=== PATIENT | male | born 1980 | race Caucasian/White ===

== ENCOUNTER 2023-04-04 11:39 | Emergency (ER) | payer OTHER ==
[2023-04-04] MEDS ORDERED: HYDROCODONE-ACETAMIN 2.5-108/5 ML SOLUTION PO STA (12:04)
[2023-04-04] MEDS ORDERED: TORAdol 30 mg Injection IV ONE (12:05)
[2023-04-04] MEDS ORDERED: HYDROCODONE-ACETAMIN 2.5-108/5 ML SOLUTION ONE (12:16)
[2023-04-04] MEDS ORDERED: TORAdol 30 mg Injection ONE (12:16)
[2023-04-04 12:35] LABS: Absolute Neutrophil Ct (ANC) 4.96 x10^3/uL (1.4-6.9); BASOPHIL % 0.5 % (0.0-0.4); Basophil (Absolute #) 0.03 x10^3/uL (0-0.4); Eosinophil (Absolute #) 0 x10^3/uL (0-0.5); Hematocrit 43.1 % (42-50); Hemoglobin 14.6 g/dL (12.5-18.0); IMMATURE GRAN # 0.02 x10^3u/L (0.00-0.03); IMMATURE GRAN % 0.3 % (0.00-0.4); Lymphocytes % 9.2 % (24.0-44.0); Mean Corpuscular Hemoglobin 32.5 pg (26-32); Mean Corpuscular Hgb Concent. 33.9 g/dL (32-36); Monocyte (Absolute #) 0.89 x10^3/uL (0.0-1.3); Monocytes % 13.7 % (0.0-12.0); Neutrophil % 76.3 % (36.0-66.0); Platelet Count 222 x10^3/uL (150-450); Red Blood Count 4.49 x10^6/uL (4.1-5.6); White Blood Count 6.5 x10^3/uL (4.0-10.5)
[2023-04-04 12:49] LABS: ALBUMIN 4.4 g/dL (3.5-5.0); ANION GAP 15.7 MEQ/L (5-15); BILIRUBIN,TOTAL 0.5 mg/dL (0.2-1.3); Calcium 9.5 mg/dL (8.4-10.2); Creatinine 1 0.81 mg/dL (0.66-1.25); EST GLOMERULAR FILTRATION RATE 112.2 ML/MIN; Potassium 4.2 mmol/L (3.5-5.1); Total Protein 7.7 g/dL (6.3-8.2)
[2023-04-04 13:14] LABS: INFLUENZA A NEGATIVE (NEGATIVE); INFLUENZA B NEGATIVE (NEGATIVE); RESPIRATORY SYNCTIAL VIRUS NEGATIVE (NEGATIVE); SARS-CoV-2 Xpert Express NEGATIVE (NEGATIVE)
[2023-04-04 13:19] VITALS: TEMP 99.5
[2023-04-04 14:10] VITALS: BP 120/72; PULSE 81; RESP 15
[2023-04-04 14:14] VITALS: O2SAT 92
--- NOTE | 2023-04-04 14:14 | ERPHSYRPT ---
- History of Present Illness Time Seen by Provider: 04/04/23 11:48 Source: patient Exam Limitations: no limitations Patient Subjective Stated Complaint: C/O cough, fever, body aches for 2 days Triage Nursing Assessment: Patient ambulated back to ER. He is alert and oriented. Skin is hot to touch. He is flushed. Cough present that becomes more forceful when taking a deep breath to assess lung sounds. Cough is non- productive at this time. LISSETTE BANKS. Physician History: 42 years old male presented in the ER with chief complaint of cough congestion, body aches with a fever of Tmax 103. Patient reports having bouts of coughing and because of repeated coughing having generalized chest soreness. No difficulty breathing. He has been taking Tylenol and ibuprofen with some symptomatic relief. No abdominal pain nausea or vomiting. Allergies/Adverse Reactions: No Known Drug Allergies Allergy (Verified 04/04/23 11:45) Home Medications: Citalopram Hydrobromide [Celexa] 1 tab PO DAILY 04/04/23 [History] Insulin Aspart [NovoLOG Insulin] 1 unit SQ AC 04/04/23 [History] Insulin Glargine [Lantus Insulin] 25 unit SQ BID 04/04/23 [History] Lisinopril 10 mg [Zestril 10 MG] 0.5 mg PO DAILY 04/04/23 [History] Metformin HCl 500 mg [Glucophage 500 MG] 1,000 mg PO BID 04/04/23 [History] Rosuvastatin Calcium 1 tab PO DAILY 04/04/23 [History] buPROPion HCL [Bupropion HCl] 1 tab PO DAILY 04/04/23 [History] Hx Tetanus, Diphtheria Vaccination/Date Given: Yes Hx Influenza Vaccination/Date Given: No Hx Pneumococcal Vaccination/Date Given: No Immunizations Up to Date: Yes Travel Risk - International Travel Have you traveled outside of the country in past 3 weeks: No - Coronavirus Screening Are you exhibiting any of the following symptoms?: Yes Symptoms: Fever, Cough: New Onset, Headaches/Body Aches/Fatigue Close contact with a COVID-19 positive Pt in past 14-21 Days: No - Vaccine Status Have you recieved a Covid-19 vaccination: No - Review of Systems Constitutional: Fever, Chills, Fatigue, Weakness Eyes: No Symptoms Ears, Nose, & Throat: Nose Congestion, Throat Swelling Respiratory: Cough Cardiac: No Symptoms Abdominal/Gastrointestinal: No Symptoms Musculoskeletal: Myalgias Skin: No Symptoms Neurological: Headache Endocrine: No Symptoms Hematologic/Lymphatic: No Symptoms - Past Medical History Pertinent Past Medical History: Yes Neurological History: No Pertinent History ENT History: No Pertinent History Cardiac History: High Cholesterol, Hypertension Respiratory History: No Pertinent History Endocrine Medical History: Diabetes Type I Musculoskeletal History: Fractures GI Medical History: No Pertinent History History: No Pertinent History Psycho-Social History: Anxiety, Depression Male Reproductive Disorders: No Pertinent History - Past Surgical History Past Surgical History: Yes Other Surgical History: tendon to finger fixed - Social History Smoking Status: Current every day smoker How long have you smoked: 30 years Exposure to second hand smoke: No Drug Use: none Patient Lives Alone: No - Nursing Vital Signs Nursing Vital Signs: Initial Vital Signs Temperature 102.7 F 04/04/23 11:39 Blood Pressure 134/86 04/04/23 11:39 Pain Scale Pain Intensity 0 - Physical Exam General Appearance: no apparent distress, alert Eye Exam: PERRL/EOMI Ears, Nose, Throat Exam: moist mucous membranes, pharyngeal erythema Neck Exam: normal inspection, non-tender, supple, full range of motion Respiratory Exam: normal breath sounds, lungs clear Cardiovascular Exam: regular rate/rhythm, normal heart sounds Gastrointestinal/Abdomen Exam: soft, normal bowel sounds, No tenderness Extremity Exam: normal inspection Neurologic Exam: alert, oriented x 3, cooperative Skin Exam: normal color SpO2 Interpretation: normal SpO2: 92 O2 Delivery: Room Air Ordered Tests: Active Orders 24 hr Category Date Time Status CHEST 1 VIEW (PORTABLE) Stat Exams 04/04/23 12:04 Taken BLOOD CULTURE Stat Lab 04/04/23 12:44 Received CBC W DIFF Stat Lab 04/04/23 12:00 Completed CMP Stat Lab 04/04/23 12:00 Completed Lactic Acid Stat Lab 04/04/23 12:10 Completed Medication Summary Discontinued Medications Generic Name Dose Route Start Last Admin Trade Name Freq PRN Reason Stop Dose Admin Hydrocodone Bitart/Acetaminophen 15 ml 04/04/23 12:04 04/04/23 12:18 Hydrocodone/Acetaminophen 5 Ml Udcup PO 04/04/23 12:05 15 ml STAT STA Administration Hydrocodone Bitart/Acetaminophen Confirm 04/04/23 12:16 Hydrocodone/Acetaminophen 5 Ml Udcup Administered 04/04/23 12:17 Dose 15 ml .ROUTE .STK-MED ONE Ketorolac Tromethamine 30 mg 04/04/23 12:05 04/04/23 12:21 Ketorolac Tromethamine 30 Mg/Ml Inj IV 04/04/23 12:06 30 mg STAT ONE Administration Ketorolac Tromethamine Confirm 04/04/23 12:16 Ketorolac Tromethamine 30 Mg/Ml Inj Administered 04/04/23 12:17 Dose 30 mg .ROUTE .STK-MED ONE Lab/Rad Data: Laboratory Result Diagrams 04/04/23 12:00 04/04/23 12:00 Laboratory Results 04/04/23 04/04/23 04/04/23 Range/Units 12:10 12:00 12:00 WBC (4.0-10.5) x10^3/uL RBC (4.1-5.6) x10^6/uL Hgb (12.5-18.0) g/dL Hct (42-50) % MCV (78-100) fL MCH (26-32) pg MCHC (32-36) g/dL RDW (11.5-14.0) % Plt Count (150-450) x10^3/uL MPV (7.5-11.0) fL Gran % (36.0-66.0) % Immature Gran % (Auto) (0.00-0.4) % Nucleat RBC Rel Count (0.00-0.1) % Eos # (Auto) (0-0.5) x10^3/uL Immature Gran # (Auto) (0.00-0.03) x10^3u/L Absolute Lymphs (auto) (1.0-4.6) x10^3/uL Absolute Monos (auto) (0.0-1.3) x10^3/uL Absolute Nucleated RBC (0.00-0.01) x10^3u/L Lymphocytes % (24.0-44.0) % Monocytes % (0.0-12.0) % Eosinophils % (0.00-5.0) % Basophils % (0.0-0.4) % Absolute Granulocytes (1.4-6.9) x10^3/uL Basophils # (0-0.4) x10^3/uL Sodium 132 L (137-145) mmol/L Potassium 4.2 (3.5-5.1) mmol/L Chloride 97 L (98-107) mmol/L Carbon Dioxide 23 (22-30) mmol/L Anion Gap 15.7 H (5-15) MEQ/L BUN 13 (9-20) mg/dL Creatinine 0.81 (0.66-1.25) mg/dL Estimated GFR 112.2 ML/MIN Glucose 322 H (74-106) mg/dL Lactic Acid 1.2 (0.4-2.0) Calcium 9.5 (8.4-10.2) mg/dL Total Bilirubin 0.50 (0.2-1.3) mg/dL AST 24 (17-59) U/L ALT 32 (0-50) U/L Alkaline Phosphatase 66 (38-126) U/L Serum Total Protein 7.7 (6.3-8.2) g/dL Albumin 4.4 (3.5-5.0) g/dL Influenza Type A Ag NEGATIVE (NEGATIVE) Influenza Type B Ag NEGATIVE (NEGATIVE) RSV (PCR) NEGATIVE (NEGATIVE) SARS-CoV-2 (PCR) NEGATIVE (NEGATIVE) 04/04/23 Range/Units 12:00 WBC 6.5 (4.0-10.5) x10^3/uL RBC 4.49 (4.1-5.6) x10^6/uL Hgb 14.6 (12.5-18.0) g/dL Hct 43.1 (42-50) % MCV 96.0 (78-100) fL MCH 32.5 H (26-32) pg MCHC 33.9 (32-36) g/dL RDW 13.0 (11.5-14.0) % Plt Count 222 (150-450) x10^3/uL MPV 10.0 (7.5-11.0) fL Gran % 76.3 H (36.0-66.0) % Immature Gran % (Auto) 0.3 (0.00-0.4) % Nucleat RBC Rel Count 0.0 (0.00-0.1) % Eos # (Auto) 0 (0-0.5) x10^3/uL Immature Gran # (Auto) 0.02 (0.00-0.03) x10^3u/L Absolute Lymphs (auto) 0.60 L (1.0-4.6) x10^3/uL Absolute Monos (auto) 0.89 (0.0-1.3) x10^3/uL Absolute Nucleated RBC 0.00 (0.00-0.01) x10^3u/L Lymphocytes % 9.2 L (24.0-44.0) % Monocytes % 13.7 H (0.0-12.0) % Eosinophils % 0.0 (0.00-5.0) % Basophils % 0.5 (0.0-0.4) % Absolute Granulocytes 4.96 (1.4-6.9) x10^3/uL Basophils # 0.03 (0-0.4) x10^3/uL Sodium (137-145) mmol/L Potassium (3.5-5.1) mmol/L Chloride (98-107) mmol/L Carbon Dioxide (22-30) mmol/L Anion Gap (5-15) MEQ/L BUN (9-20) mg/dL Creatinine (0.66-1.25) mg/dL Estimated GFR ML/MIN Glucose (74-106) mg/dL Lactic Acid (0.4-2.0) Calcium (8.4-10.2) mg/dL Total Bilirubin (0.2-1.3) mg/dL AST (17-59) U/L ALT (0-50) U/L Alkaline Phosphatase (38-126) U/L Serum Total Protein (6.3-8.2) g/dL Albumin (3.5-5.0) g/dL Influenza Type A Ag (NEGATIVE) Influenza Type B Ag (NEGATIVE) RSV (PCR) (NEGATIVE) SARS-CoV-2 (PCR) (NEGATIVE) - Progress Progress: improved, re-examined Air Movement: good Progress Note: 04/04/23 14:12 42 years old is evaluated in the ER for flulike symptoms for the last 2 days with a fever chills and bodyaches. Patient is not in any distress. He is given Toradol and hydrocodone liquid, on reevaluation his cough is better and temperature improved. Chest x-ray negative for any acute cardiopulmonary findings reviewed by me, official report is pending. Patient is not tachypneic or tachycardic, not hypoxic. Negative flu COVID and RSV. Normal white count, chemistry profile fairly unremarkable except for elevated glucose which probably secondary to the fact that he had some food prior to arrival. I believe ami ent has viral etiology symptoms, recommended supportive care and outpatient follow-up. Discussed signs symptoms of worsening needing return to ER which she seems understanding. Stable for discharge. Blood Culture(s) Obtained: No Antibiotics given: No Counseled pt/family regarding: lab results, diagnosis, need for follow-up, rad results Medical Desision Making - Independent Historian Additional History obtained from: Spouse - Diagnostic Testing Diagnostic test were ordered, analyzed, and reviewed by me: Yes Radiological Interpretation: Interpreted by me, Reviewed by me - Risk of complications The pt has a mod risk of morbidity or mortality based on: Need for prescription drug management - Departure Departure Disposition: Home Clinical Impression: Viral upper respiratory tract infection with cough Condition: Stable Critical Care Time: No Referrals: Provider,Unknown [Primary Care Provider] - Follow up with PCP 2 days Instructions: Cough, Adult (DC) Additional Instructions: Follow-up with primary care for reevaluation. Take Tylenol/ibuprofen as needed for symptomatic relief. Return to ER for worsening cough or if having difficulty breathing etc. Prescriptions: Hydrocodone/Acetaminophen [Hydrocodone-Acetamn 7.5-325/15] 10 ml PO Q8H PRN PRN 4 Days #120 ml MDD 40 PRN Reason: Pain
--- NOTE | 2023-04-04 19:58 | XRAY ---
Indication: Chest pain. Cough. Comparison: None Portable chest demonstrates normal heart and lungs. Bony thorax intact.
== END 2023-04-04 14:26 | disposition home or self-care (01) ==
LOC: ED 11:39
DX: J06.9 Acute upper respiratory infection, unspecified (principal); R05.1 Acute cough; R50.9 Fever, unspecified; M79.10 Myalgia, unspecified site; R07.9 Chest pain, unspecified; E78.5 Hyperlipidemia, unspecified; I10 Essential (primary) hypertension; E10.9 Type 1 diabetes mellitus without complications; Z79.4 Long term (current) use of insulin; Z79.84 Long term (current) use of oral hypoglycemic drugs; Z79.891 Long term (current) use of opiate analgesic; Z79.899 Other long term (current) drug therapy; Z28.310 Unvaccinated for COVID-19; Z72.0 Tobacco use
CPT/HCPCS: 0241U; 36000; 36415; 71045; 80053; 83605; 85025; 87040; 96374; 99284; J1885; A9270-GY